=== PATIENT | female | born 1940 | race Caucasian/White ===

== ENCOUNTER 2016-06-25 15:03 | Emergency (ER) | payer OTHER, MEDICARE ==
[~2016-06-25] VITALS: Ht 137.2 cm; Wt 77.1 kg
[~2016-06-25 15:03] MED LIST: ADDERALL 20 MG20 MG PO; ADDERALL 30 MG30 MG PO; ADVAIR 100-501 EACH INH; ADVAIR HFA115 MCG/21 INH; ADVIL PM CAPLE1 EACH PO; ADVIL PM PO; ALIGN4 MG PO; AMBIEN 5 MG TABL5 M1 PO; AMPHETAMINE SAL30 MG PO; AMPICILLIN-SULB3 GM IV; ASPIRIN325 PO; BENICAR HCT 401 EAC1 PO; BENICAR HCT 401 EACH PO; BENICAR20 MG PO; BISACODYL SUPP10 MG RECTAL; CARBAMAZEPINE200 M2 PO; CARBAMAZEPINE200 M5 PO; CEFDINIR300 MG PO; CELEBREX 200 M200 M1 PO; CENTRUM SILVER1 EAC4 PO; CLONAZEPAM 0.50.5 M1 PO; COLACE100 MG PO; CYCLOBENZAPRINE5 MG PO; CYMBALTA30 MG PO; CYMBALTA60 MG PO; DIPHENHIST25 M2 PO; DOXYCYCLINE 10100 M2 PO; DURAGESIC1 EAC2 TRANSDERM; ENOXAPARIN30 MG/0.1 SUBQ; FENTANYL PA50 MCG/HR TRANSDERM; FENTANYL PATCH75 MCG TRANSDERM; FISH OIL 1,0001 EAC8 PO; GENTAMICIN 0.1%15 G2 TOP; GLUMETZA500 PO; HYDROXYZINE HCL PO; IBUPROFEN 600600 M1 PO; KEFLEX500 MG PO; KLOR-CON 1010 MEQ PO; LASIX 20 MG TAB20 MG PO; LYRICA 50 MG50 MG PO; LYRICA 75 MG CA75 MG PO; LYRICA150 MG PO; LYRICA300 MG PO; MAG DELAY64 MG PO; MAGNESIUM OXID400 MG PO; MEDROLDOSEPACK PO; METADATE CD10 MG PO; METFORMIN HCL500 M2 PO; MILK OF MA400 MG/5 M PO; MIRAPEX0.5 MG PO; MYBETRIC PO; MYRBETRIQ50 MG PO; NEURONTIN 300300 M1 PO; NUVIGIL PO; NUVIGIL250 MG PO; OXYCODONE HCL 55 MG PO; OXYCODONE HCL5 M1 PO; OXYCODONE IR PO; OXYCODONE-ACET1 EAC2 PO; OXYCODONE-ACET1 EACH PO; OXYCONTIN20 M1 PO; OXYTROL PO; PHENERGAN 25 MG25 MG PO; PROBIOTIC1 EAC1 PO; ROPINIROLE PO; ROXICODONE5 M1 PO; SANTYL OINTMENT30 G1 TP; TOPAMAX 25 MG T25 M1 PO; TRICOR145 MG PO; ULTRAM 50MG TAB50 MG PO; VESICARE 5 MG TA5 M1 PO; VESICARE10 M1 PO; VITAMIN D250000 UNIT PO; XYREM PO; ZONEGRAN100 MG PO; ZPAK PO
[2016-06-25 15:28] LABS: URINE BILIRUBIN NEGATIVE (Negative); URINE BLOOD TRACE (Negative); URINE COLOR YELLOW; URINE GLUCOSE-RANDOM* NEGATIVE (Negative); URINE KETONES NEGATIVE (Negative); URINE NITRITE NEGATIVE (Negative); URINE PROTEIN (DIPSTICK) NEGATIVE (Negative); URINE UROBILINOGEN 0.2 E.U./dl (0.2-1.0)
[2016-06-25 16:04] LABS: HEMATOCRIT 27.2 % (37.0-47.0); HEMOGLOBIN 9.2 gm/dL (12.0-15.0); MCH 28.4 pg (26.0-34.0); MCHC 33.6 g/dL (28.0-37.0); MCV 84.4 fL (80.0-100.0); PLATELET COUNT 199 thou/uL (150-400); RBC 3.22 mil/uL (4.20-5.00); RDW 14.9 % (10.5-14.5); WBC 6.5 thou/uL (4.0-11.0)
[2016-06-25 16:05] LABS: MANUAL DIFF YES
[2016-06-25 16:19] LABS: PROTIME 10.4 Seconds (9.3-11.4)
[2016-06-25 16:27] LABS: ABSOLUTE NEUTROPHILS 4.2 thou/uL (1.4-8.2); TOTAL CELL COUNT 100
[2016-06-25 16:28] LABS: ANISOCYTOSIS 1+; POLYCHROMASIA OCCASIONAL
[2016-06-25 16:29] LABS: CALCIUM 9.1 mg/dL (8.5-10.1); CREATININE 1.9 mg/dL (0.6-1.3); POTASSIUM 4.7 mmol/L (3.5-5.1)
[2016-06-25 16:33] LABS: ALBUMIN 3.4 g/dL (3.4-5.0); TOTAL BILIRUBIN 0.3 mg/dL (<0.1-1.0)
== END 2016-06-25 18:53 | disposition home or self-care (01) ==
LOC: ER 15:03
PROVIDERS: Nurse Practitioner Family
DX: N17.9 Acute kidney failure, unspecified (principal); I13.0 Hypertensive heart and chronic kidney disease with heart failure and stage 1 through stage 4 chronic kidney disease, or unspecified chronic kidney disease; N18.9 Chronic kidney disease, unspecified; I50.9 Heart failure, unspecified; R10.31 Right lower quadrant pain; D64.9 Anemia, unspecified; R31.9 Hematuria, unspecified; F32.9 Major depressive disorder, single episode, unspecified; Z87.891 Personal history of nicotine dependence

== ENCOUNTER → 2019-11-03 | Outpatient (CLI) | payer OTHER, MEDICARE | LOC: SJCVCIMAG 08:59 | PROVIDERS: ATTEND Internal Medicine Cardiovascular Disease | DX: I08.0 Rheumatic disorders of both mitral and aortic valves (principal); I42.8 Other cardiomyopathies; E78.00 Pure hypercholesterolemia, unspecified; I13.0 Hypertensive heart and chronic kidney disease with heart failure and stage 1 through stage 4 chronic kidney disease, or unspecified chronic kidney disease; I50.32 Chronic diastolic (congestive) heart failure; N18.3 Chronic kidney disease, stage 3 (moderate); I48.91 Unspecified atrial fibrillation; Z79.899 Other long term (current) drug therapy; Z87.891 Personal history of nicotine dependence ==

== ENCOUNTER → 2020-08-05 | Outpatient (CLI) | payer OTHER, MEDICARE | LOC: SJCVC 11:25 | PROVIDERS: ATTEND Internal Medicine Cardiovascular Disease | DX: R94.31 Abnormal electrocardiogram [ECG] [EKG] (principal); I42.9 Cardiomyopathy, unspecified; E78.00 Pure hypercholesterolemia, unspecified; I48.92 Unspecified atrial flutter; I35.0 Nonrheumatic aortic (valve) stenosis; I13.0 Hypertensive heart and chronic kidney disease with heart failure and stage 1 through stage 4 chronic kidney disease, or unspecified chronic kidney disease; I50.9 Heart failure, unspecified; N18.9 Chronic kidney disease, unspecified; J44.9 Chronic obstructive pulmonary disease, unspecified; Z98.890 Other specified postprocedural states; Z88.8 Allergy status to other drugs, medicaments and biological substances; Z79.899 Other long term (current) drug therapy; Z87.891 Personal history of nicotine dependence; Z86.79 Personal history of other diseases of the circulatory system; Z82.49 Family history of ischemic heart disease and other diseases of the circulatory system ==

== ENCOUNTER → 2021-01-30 | Outpatient (CLI) | payer OTHER, MEDICARE | LOC: SJCVCIMAG 09:15 | PROVIDERS: ATTEND Internal Medicine Cardiovascular Disease | DX: I08.3 Combined rheumatic disorders of mitral, aortic and tricuspid valves (principal); I11.9 Hypertensive heart disease without heart failure; I42.8 Other cardiomyopathies; J44.9 Chronic obstructive pulmonary disease, unspecified; E78.00 Pure hypercholesterolemia, unspecified; I42.9 Cardiomyopathy, unspecified; Z79.899 Other long term (current) drug therapy; Z88.8 Allergy status to other drugs, medicaments and biological substances; Z87.891 Personal history of nicotine dependence ==